=== PATIENT | male | born 1990 | race Caucasian/White ===

== ENCOUNTER 2018-08-28 12:40 | Emergency (ER) | payer SELFPAY ==
[~2018-08-28] VITALS: Ht 160 cm; Wt 76.0 kg
[2018-08-28 12:45] VITALS: BP 135/69; PULSE 69; RESP 18; Ht 160 cm; Wt 76.0 kg
[2018-08-28] MEDS ORDERED: IBUPROFEN 600 MG TAB PO ONE (13:30)
[2018-08-28] MEDS ORDERED: IBUP-1542 PO (14:12)
--- NOTE | 2018-08-28 14:25 | ERD ---
ER Documentation Chief Complaint Chief Complaint left rib pain, s/p fall HPI This is a 27-year-old Venezuelan-speaking male presents to the ED complaining of left-sided rib pain status post fall 15 days ago. Patient states he was carrying trash when he accidentally fell onto metal. There was no head injury. No LOC, no neck or back pain. Patient states he has been having progressively worsening left-sided rib pain for the past 4 days. He has pain with inspiration. He has been taking [id number] Tylenol with mild relief. No chest pain. No other symptoms. ROS All systems reviewed and are negative except as per history of present illness. Medications Home Meds Active Scripts Ibuprofen* (Motrin*) 600 Mg Tab, 600 MG PO Q6H PRN for PAIN AND OR ELEVATED TEMP, #30 TAB Prov:ANA BERRY PA-C 08/28/18 Allergies Allergies: Coded Allergies: No Known Allergy (Unverified , 08/28/18) PMhx/Soc Medical and Surgical Hx: pt denies Medical Hx, pt denies Surgical Hx Hx Alcohol Use: No Hx Substance Use: No Hx Tobacco Use: Yes Smoking Status: Current some day smoker Physical Exam Vitals Vital Signs Date Temp Pulse Resp B/P (MAP) Pulse Ox O2 O2 Flow FiO2 Time Delivery Rate 08/28/18 98.1 69 18 135/69 99 12:45 (91) Physical Exam Const: No acute distress Head: Atraumatic Eyes: Normal Conjunctiva ENT: Normal External Ears, Nose and Mouth. Neck: Full range of motion. No meningismus. Resp: + Mild tenderness palpation near the left lower rib, approximately 6 with position. No crepitus. No obvious deformity. Lungs clear to auscultation bilaterally Cardio: Regular rate and rhythm, no murmurs Abd: Soft, non tender, non distended. Normal bowel sounds Skin: No petechiae or rashes Neur: Awake and alert Psych: Normal Mood and Affect Results 24 hrs Current Medications Medications Dose Sig/Nyla Start Time Status Last (Trade) Ordered Route PRN Stop Time Admin Dose Reason Admin Ibuprofen 600 mg ONCE ONCE 08/28/18 DC 08/28/18 (Motrin) PO 13:30 08/28/18 13:21 13:31 Procedures/MDM LABS & DIAGNOSTIC IMAGING: PROCEDURE: XR Left rib series. CLINICAL INDICATION: Pain following injury. TECHNIQUE: 3 views of the left rib cage are available for review COMPARISON: None available FINDINGS: No acute fracture or dislocation is seen. There is a 1.2 cm sclerotic focus within the anterior left sixth rib. No radiopaque foreign body is identified. No focal airspace opacity, pleural effusion or pneumothorax is seen. The cardiothymic silhouette is within normal limits for size. IMPRESSION: 1. No acute fracture identified. 2. 1.2 cm sclerotic focus within the anterior left sixth rib, likely reflecting a small bone island. ED COURSE: The patient was given ibuprofen The medication was well tolerated and the patient had market improvement in symptoms. The patient remained stable throughout ED course. MEDICAL DECISION MAKING: This is a 27-year-old male presents with left ear pain after mechanical fall several days ago. There is no LOC or associated head injury. He has no hypoxia and vital signs are stable. There is no obvious injury on physical exam. Chest x-ray was negative for any acute fracture or dislocation of the ribs. 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 Patient was given prescription for ibuprofen. He was told to follow-up with his primary care provider in 1 week, otherwise return here for any new or worsening symptoms. PRESCRIPTIONS: Ibuprofen SPECIALIST FOLLOW UP RECOMMENDED: None Patient has been advised to follow up with primary care in 1-2 days. Departure Diagnosis: Primary Impression: Rib contusion Encounter type: initial encounter Laterality: left Qualified Codes: S20.212A - Contusion of left front wall of thorax, initial encounter Condition: Stable Patient Instructions: Rib Contusion Referrals: [facility] YOU HAVE RECEIVED A MEDICAL SCREENING EXAM AND THE RESULTS INDICATE THAT YOU DO NOT HAVE A CONDITION THAT REQUIRES URGENT TREATMENT IN THE EMERGENCY DEPARTMENT. FURTHER EVALUATION AND TREATMENT OF YOUR CONDITION CAN WAIT UNTIL YOU ARE SEEN IN YOUR DOCTORS OFFICE WITHIN THE NEXT 1-2 DAYS. IT IS YOUR RESPONSIBILITY TO MAKE AN APPOINTMENT FOR FOLOW-UP CARE. IF YOU HAVE A PRIMARY DOCTOR --you should call your primary doctor and schedule an appointment IF YOU DO NOT HAVE A PRIMARY DOCTOR YOU CAN CALL OUR PHYSICIAN REFERRAL HOTLINE AT IF YOU CAN NOT AFFORD TO SEE A PHYSICIAN YOU CAN CHOSE FROM THE FOLLOWING [facility] [address] [facility]. [facility] [address] [facility] [address] [facility] [address] [facility] [address] [facility]. [facility] [address] [facility]. [facility] YOU HAVE RECEIVED A MEDICAL SCREENING EXAM AND THE RESULTS INDICATE THAT YOU DO NOT HAVE A CONDITION THAT REQUIRES URGENT TREATMENT IN THE EMERGENCY DEPARTMENT. FURTHER EVALUATION AND TREATMENT OF YOUR CONDITION CAN WAIT UNTIL YOU ARE SEEN IN YOUR DOCTORS OFFICE WITHIN THE NEXT 1-2 DAYS. IT IS YOUR RESPONSIBILITY TO MAKE AN APPOINTMENT FOR FOLOW-UP CARE. IF YOU HAVE A PRIMARY DOCTOR --you should call your primary doctor and schedule and appointment IF YOU DO NOT HAVE A PRIMARY DOCTOR YOU CAN CALL OUR PHYSICIAN REFERRAL HOTLINE AT . IF YOU CAN NOT AFFORD TO SEE A PHYSICIAN YOU CAN CHOSE FROM THE FOLLOWING [facility] INSTITUTIONS: [facility] [id number] [place] [address] [address] [place], [place] [id number] [place] [address] [address] [place] [address] Additional Instructions: Paciente aconseja volver a Departamento de urgencias inmediatamente para sntomas nuevos o que empeoran . Paciente aconseja posteriores con el PCP en 1-2 owusu. Si el paciente no tiene ninguna de atencin primaria pueden seguir con [facility] [id number] [place] [address] o [facility] [address] [place] [id number] ANA BERRY PA-C Aug 28, 2018 14:25
== END 2018-08-28 14:44 | disposition home or self-care (01) ==
LOC: FTE 12:40
DX: S20.212A Contusion of left front wall of thorax, initial encounter (principal); F17.210 Nicotine dependence, cigarettes, uncomplicated; W18.39XA Other fall on same level, initial encounter; Y92.9 Unspecified place or not applicable
CPT/HCPCS: 71100